=== PATIENT | male | born 1990 | race Caucasian/White ===

== ENCOUNTER 2018-11-03 19:32 | Emergency (ER) | payer OTHER ==
[~2018-11-03] VITALS: Ht 182.9 cm; Wt 90.7 kg
[2018-11-03] MEDS ORDERED: LIDOCAINE VISC100 ML PO (20:29)
[2018-11-03] MEDS ORDERED: AMOXICILLIN 50500 MG PO (20:29)
[2018-11-03] MEDS ORDERED: IBUPROFEN 800800 MG PO (20:29)
[2018-11-03] MEDS ORDERED: NORCO 5-325 TA1 EACH PO (20:29)
[2018-11-03 20:47] VITALS: BP 152/98
== END 2018-11-03 20:47 | disposition home or self-care (01) ==
LOC: M.ERS 19:32
DX: K08.89 Other specified disorders of teeth and supporting structures (principal); F17.200 Nicotine dependence, unspecified, uncomplicated